=== PATIENT | male | born 1995 | race American Indian/Alaskan Native ===

== ENCOUNTER 2018-08-24 11:00 | Emergency (ER) | payer OTHER ==
[2018-08-24 11:22] VITALS: BP 110/70
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
== END 2018-08-24 14:42 | disposition home or self-care (01) ==
LOC: ED 11:00
DX: R51 Headache (principal); F17.200 Nicotine dependence, unspecified, uncomplicated; V43.62XA Car passenger injured in collision with other type car in traffic accident, initial encounter; Y93.89 Activity, other specified; Y92.488 Other paved roadways as the place of occurrence of the external cause; Y99.8 Other external cause status
CPT/HCPCS: 99282